=== PATIENT | female | born 1970 | race Caucasian/White ===

== ENCOUNTER 2024-12-06 14:54 | Emergency (ER) | payer SELFPAY ==
--- NOTE | 2024-12-06 14:45 | RT.EKG_ITS ---
APPROVED REPORT Exam: Resting ECG Reason for Exam: SOB/CP Patient Location: E HR:73 bpm ECG Measurements Heart Rate 73 AXIS W[place] 138 P 73 QRSd 86 QRS 56 QT 363 T 10 QTc 399 Conclusion Sinus rhythm, rate 73 No interval abnormalities No STEMI T wave inversions III, V1 - 4, no priors available for comparison
[2024-12-06 14:56] VITALS: BP 100/66; PULSE 73; RESP 20; TEMP 37.4; O2SAT 87
--- NOTE | 2024-12-06 15:11 | ED.GENADUL_ITS ---
Discharge Plan Disposition Patient Disposition: Home Condition: Stable Discharge Details Clinical Impression: Shortness of breath, Pneumonia Primary Care Provider: Unknown,Unknown ED Provider: Tena Thompson Home Meds and New Rx's Prescriptions: New azithromycin 250 mg tablet 250 mg PO DAILY 4 Days Qty: 4 0RF Rx Instructions: start on day 2 of therapy (12/07/2024) prednisone 20 mg tablet 40 mg PO DAILY 4 Days Qty: 8 0RF Rx Instructions: Start on 12/07/2024 Discharge Instructions Instructions: Pneumonia, Adult (DC) Additional Instructions: You were seen in the emergency department today for evaluation of shortness of breath and low oxygen. In our department you do full physical examination performed and had a chest x-ray that did show a very slight area of potential pneumonia in the right side of your lung. You otherwise had reassuring labs and a negative COVID test. There was no sign of damage to your heart. Your oxygen is lower than I would like, but does dip up and down. With your provider's concern for COPD this may represent your normal oxygen levels. You need to follow-up with your primary care provider in 1 to 2 days to discuss this visit and any symptoms that change, worsen, or persist. I have sent 2 prescriptions to your pharmacy, you will complete a course of antibiotics and steroids. Take all of this medication until it is gone, even if you start to feel better. I did provide you with an albuterol inhaler to utilize at home as often as every 4 hours for shortness of breath and wheezing. Please follow-up with your primary care provider in the next few days to discuss this visit and any symptoms that change, worsen, or persist. Thank you for allowing us to be part of your care. HPI General Mode of arrival: ambulatory . Date/Time Provider Initiated Documentation: 12/06/24 15:03 . Limitations to Documentation: no limitations . Information obtained by: patient and old records reviewed . HPI Narrative: This is a 54-year-old female patient with a past medical history most significant for a recent COVID infection about 1 month ago, smokes cigarettes but has never been diagnosed formally with any pulmonary diseases such as asthma or COPD, presenting for evaluation of shortness of breath, subjective fever, and chest tightness. The patient states that she has had persistent changes in her voice, but over the last day or so has had worsening shortness of breath, can only speak in a few word sentences, and has felt some tightness across her chest. She reports that she feels chilled and is worried that she caught another respiratory illness. She has had numerous sick contacts at home, her children are all sick with similar symptoms. The patient states that she does not wear oxygen at home, in triage was noted to be saturating 83 to 87% on room air. Her chest pain is not reproducible with palpation or deep breath. Related Data Home Medications ?Medication ?Instructions ?Recorded ?Confirmed azithromycin 250 mg tablet 250 mg PO DAILY 4 days #4 t abs 12/06/24 prednisone 20 mg tablet 40 mg (2 x 20 mg) PO DAILY 4 days 12/06/24 #8 tabs Previous Rx's ?Medication ?Instructions ?Recorded azithromycin 250 mg tablet 250 mg PO DAILY 4 days #4 t abs 12/06/24 prednisone 20 mg tablet 40 mg (2 x 20 mg) PO DAILY 4 days 12/06/24 #8 tabs General Stated Complaint: RespSymp ARIN: 3 Exam Narrative Exam Narrative: Gen: Awake and alert, ill-appearing HEENT: Non-icteric sclera, PERRL. Speech is slightly hoarse Neck: Supple Lungs: Mild respiratory distress appreciated, 3-5 word sentences with very mild tachypnea. Lung sounds are diminished throughout but I do not auscultate any wheezing, rhonchi, rales CV: Appears well perfused, heart with regular rate and rhythm, strong distal pulses, no murmurs auscultated Abdomen: Non-distended MSK: Moves 4 extremities without apparent limitation in ROM. No unilateral calf swelling or tenderness, no peripheral edema Skin: Visualized skin without rashes, cyanosis. Neuro: Normal Gait, no obvious focal deficits or facial asymmetry. Psych: Appropriate for situation. Course Vital Signs Vital signs: Vital Signs Temperature 37.4 C 12/06/24 14:56 Pulse 73 12/06/24 14:56 Respiratory Rate 20 12/06/24 14:56 Blood Pressure 100/66 12/06/24 14:56 Pulse Oximetry 87 L 12/06/24 14:56 Temperature 37.4 C 12/06/24 14:56 Temperature Source Oral 12/06/24 14:56 Pulse 73 12/06/24 14:56 Respiratory Rate 20 12/06/24 14:56 Blood Pressure 100/66 12/06/24 14:56 Blood Pressure Position Sitting 12/06/24 14:56 Pulse Oximetry 87 L 12/06/24 14:56 Oxygen Delivery Method Room Air 12/06/24 14:56 Oxygen Flow Rate 0 12/06/24 14:56 Medical Decision Making This is a 54-year-old female patient presenting for evaluation of several days of subjective fevers, chest tightness, and shortness of breath. Differential includes but is not limited to viral upper respiratory infection, pneumonia, bronchitis, certainly considered reactive airway disease exacerbation given the diminished lung sounds, though the patient has no history of same. No history of heart problems nor evidence of fluid overload to suggest pulmonary edema or pleural effusion. Certainly considered ACS including STEMI, NSTEMI, unstable angina, arrhythmia, pericarditis/myocarditis. Considered pulmonary embolism given the recent COVID infection and new hypoxia. The patient does not meet PERC criteria for rule out given her age and hypoxia. I will provide the patient with a duo nebulizer treatment and a dose of steroids. We will obtain a Fluvid and labs to include CBC, CMP, magnesium, troponin, BNP, and D-dimer. I will obtain a chest x-ray. The patient was placed on 2 L of oxygen via nasal cannula. EKG obtained shows a sinus rhythm with diffuse T wave inversions, no STEMI or interval abnormalities. No priors available for comparison. - I independently interpreted the laboratory studies, which show no significant leukocytosis, anemia, or thrombocytopenia. The chemistry panel is without evidence of electrolyte abnormality, kidney dysfunction, or liver injury. Creatinine is very slightly elevated to 1.2 but there are no priors available for comparison. Troponin was negative, BNP low, D-dimer negative. COVID and influenza swab was negative. Chest x-ray shows trace opacities in the right lower lobe, which given the clinical context I we will treat as pneumonia. After Solu-Medrol and a duo nebulizer the patient reports significant improvement. Her O2 on room air continues to dip transiently, as low as 88%, often hovering between 90 and 93%. Given her clinicians concern for COPD this may represent her normal. The patient is greatly desiring of discharge home and given her improvement after treatment I feel that this is not unreasonable. The remainder of her course of steroids and antibiotics was sent to her pharmacy, and I provided her with an albuterol inhaler. At this time, the patient has had a full medical evaluation and is safe for discharge to home. They are hemodynamically stable, ambulatory, and tolerating PO. They are understanding of the follow-up plan and return precautions. They left our facility without incident. Tena Thompson MD PFSH All Active Problems (Updated 12/06/24 @ 16:51 by Tena Thompson MD) Pneumonia (Acute) Shortness of breath (Acute) Social History Smoking/Tobacco Use Status: Former Tobacco Use Smoking risk assessment performed?: Yes Alcohol Intake: current Alcohol Intake frequency: a few times a week Alcohol type: beer Substance use type: does not use
[2024-12-06 15:13] VITALS: BP 100/66; PULSE 73; RESP 20; TEMP 37.4; O2SAT 93
[2024-12-06] MEDS: methylPREDNISolone SUCC 125 MG VIAL IVP (15:30)
[2024-12-06] MEDS: Albuterol/Ipratropium 3 ML UPD VIAL UPD (15:30)
[2024-12-06 15:45] LABS: Abs Immature Grans 0.05 10^3/uL (0.0-0.06); HCT 43.6 % (36.0-46.0); HGB 15.1 g/dL (11.2-15.7); Immature Grans % 0.6 %; MCH 35.8 pg (27.0-33.0); MCHC 34.6 % (32.0-36.0); MCV 103 fL (80-95); MPV 8.5 fL (8.0-11.0); Platelet Count 258 10^3/uL (130-400); RBC 4.22 10^6/uL (3.93-5.22); RDW 14.0 % (11.7-14.6); RDW-SD 53.6 fL; WBC 8.07 10^3/uL (4.4-10.8)
[2024-12-06 16:08] LABS: ALT 23 U/L (14-59); AST 18 U/L (15-37); Albumin 3.9 g/dL (3.4-5.0); Alkaline Phosphatase 117 U/L (46-116); Anion Gap 6.1 mmol/L (3-11); BUN 15 mg/dL (7-18); Bilirubin, Total 0.3 mg/dL (0.2-1.0); CO2 32.9 mmol/L (21.0-32.0); Calcium 9.3 mg/dL (8.5-10.1); Chloride 106 mmol/L (98-107); Estimated GFR 54.13 (mL/min/1.73m2); Glucose 95 mg/dL (74-106); Magnesium 2.0 mg/dL (1.8-2.4); NT-proBNP 307 pg/mL (<300); Potassium 3.9 mmol/L (3.5-5.1); Sodium 145 mmol/L (136-145); Total Protein 7.5 g/dL (6.4-8.2); Troponin I 4 ng/L (<or=51)
--- NOTE | 2024-12-06 16:08 | DI.RAD_ITS ---
Exam(s) XR CHEST 2V PA LATERAL EXAM: XR CHEST 2V PA LATERAL CLINICAL HISTORY: SOB, cough. TECHNIQUE: 2D digital imaging was performed. COMPARISON: No exams were available for comparison FINDINGS: 2 views: Heart size is normal. The mediastinum is not widened. Left lung is clear. There are very mild increased markings in the right lung base right lower lobe region. No confluent infiltrates nor pleural effusions. No pulmonary edema. IMPRESSION: Very mild increased markings right lung base, probably within normal limits.No pleural effusions. No pulmonary edema. DATA REPOSITORY: RADIATION DOSE DELIVERED:
[2024-12-06 16:11] LABS: COVID-19 PCR Negative (Negative); RSV PCR Negative (Negative)
[2024-12-06 16:29] LABS: D-Dimer 488 ng/mlFEU (<500)
[2024-12-06] MEDS: Albuterol HFA 8 GM 60 PUFF INH IH (17:01)
[2024-12-06] MEDS: Azithromycin 250 MG TAB 500 MG PO (17:02)
[2024-12-06 17:08] VITALS: BP 123/68; PULSE 67; RESP 20; TEMP 37.3; O2SAT 90
[2024-12-06 17:09] VITALS: O2SAT 90
[2024-12-06 17:14] LABS: Troponin I 4 ng/L (<or=51)
== END 2024-12-06 17:27 | disposition home or self-care (01) ==
PROVIDERS: Emergency Provider Emergency Medicine
DX: J18.9 Pneumonia, unspecified organism (principal); R06.02 Shortness of breath
CPT/HCPCS: 99285; 99284; 36415; 94640; 80053; 87637; 93005; 71046; 83735; 83880; 84484; 85025; 85379; 93010; J2919; J7620